=== PATIENT | female | born 1965 | race Caucasian/White ===

== ENCOUNTER 2018-01-19 11:33 | Inpatient (IN) | payer OTHER ==
--- NOTE | 2018-01-19 11:36 | PDOC ---
History of Present Illness <Candie Albert - Last Filed: 01/19/18 15:14> - General History Source: Patient Exam Limitations: No Limitations - History of Present Illness Initial Comments: 01/19/18 11:37 Ms Ferguson is a 52 yo F who returns to the ER for evaluation of left flank pain Pt HPI began 1 week ago when she developed dysuria and frequency. She was seen at the [facility] urgent care where she was diagnosed with a UTI and started on Macrobid. Her symptoms resolved however, [facility] her culture grew Proteus and she needed another antibiotic. Pt decided to come in to the ER for a second opinion despite being asymptomatic Pt UA sent and was nonspecific particularly in light of her symptom resolution She went home and felt well Yesterday she noted mild suprapubic pressure/discomfort This morning when she wiped after urinating, she noted that it looked pink Approximately 30 minutes prior to arrival in the ER, she developed severe left flank pain, described as achy, rated 7/10 with radiation to the suprapubic area. She also noted sensitivity/irritation of the clitoral area, as though something is trying to come out. No fever or chills No diarrhea (+) nausea, no vomiting No vaginal discharge. PMH: fibroid uterus PSH: C section Meds: denies ALL: ibuprofen --> lip swelling, Morphine --> feeling like she was going to pass out Social: Denies IVDU, tobacco FH: non contributory GENERAL/CONSTITUTIONAL: No: fever, chills, weakness, loss of appetite. HEAD, EYES, EARS, NOSE AND THROAT: No: change in vision, ear pain, discharge, sore throat, throat swelling. CARDIOVASCULAR: No: chest pain, lightheadedness, palpitations, syncope RESPIRATORY: No: cough, shortness of breath, wheezing, hemoptysis, stridor. GASTROINTESTINAL: No: nausea, vomiting, diarrhea, abdominal cramping, rectal bleeding, constipation. GENITOURINARY: Yes: ?hematuria, dysuria, left flank pain No: frequency, urgency MUSCULOSKELETAL: Yes: Left flank pain SKIN AND BREASTS: No: lesions, pallor, rash or easy bruising. NEUROLOGIC: No: headache, vertigo, paresthesias, weakness ENDOCRINE: No: unexplained weight gain or loss HEMATOLOGIC/LYMPHATIC: No: anemia, easy bleeding, swelling nodes. PHYSICAL EXAM: GENERAL: The patient is in no acute distress, appears uncomfortable. HEAD: Normal with no signs of trauma. EYES: PERRLA, EOMI, sclera anicteric, conjunctiva clear. ENT: Ears normal, nares patent, oropharynx clear without exudates. Moist mucous membranes. NECK: Normal range of motion, supple LUNGS: Breath sounds equal, clear to auscultation bilaterally. No wheezes, and no crackles. HEART:Regular rate and rhythm, normal S1 and S2 without murmur, rub or gallop. ABDOMEN: Soft, nontender, normoactive bowel sounds. EXTREMITIES: Normal range of motion, no edema. NEUROLOGICAL: Cranial nerves II through XII grossly intact. Normal speech. No focal neurological deficits. MUSCULOSKELETAL: Mild left CVA tenderness SKIN: Warm, Dry, normal turgor, no rashes or lesions noted. 01/19/18 11:50 01/19/18 11:51 <Marline Ramesh - Last Filed: 01/22/18 11:26> - General Chief Complaint: Hematuria Stated Complaint: LEFT LOWER BACK PAIN, HEMATURIA Time Seen by Provider: 01/19/18 11:36 Past History <Candie Albert - Last Filed: 01/19/18 15:14> - Past Medical History COPD: No Disorders: Yes (FIBROID) - Suicide/Smoking/Psychosocial Hx Smoking Status: No Smoking History: Never smoked Number of Cigarettes Smoked Daily: 0 Hx Alcohol Use: Yes (SOCIAL) Drug/Substance Use Hx: No Substance Use Type: None <Marline Ramesh - Last Filed: 01/22/18 11:26> - Past Medical History Allergies/Adverse Reactions: Allergies Allergy/AdvReac Type Severity Reaction Status Date / Time ibuprofen Allergy Severe Swelling Verified 01/19/18 17:09 Home Medications: Ambulatory Orders No Home Medications 0 dose .ROUTE UTDICT 04/01/13 *Physical Exam - Vital Signs Last Vital Signs Temp Pulse Resp BP Pulse Ox 99.0 F 72 16 122/60 100 01/19/18 14:52 01/19/18 14:52 01/19/18 14:52 01/19/18 14:52 01/19/18 14:52 <Candie Albert - Last Filed: 01/19/18 15:14> ED Treatment Course - LABORATORY CBC & Chemistry Diagram: 01/19/18 12:00 01/19/18 12:00 - ADDITIONAL ORDERS Additional order review: Laboratory Results 01/19/18 01/19/18 01/19/18 13:40 12:00 11:45 Sodium 134 L Potassium 3.9 Chloride 98 Carbon Dioxide 27 Anion Gap 9 BUN 16 Creatinine 0.7 Creat Clearance w eGFR > 60 Random Glucose 116 H Calcium 9.4 Total Bilirubin 0.5 AST 20 ALT 14 Alkaline Phosphatase 58 Total Protein 7.7 Albumin 4.3 Urine Color Yellow Urine Appearance Clear Urine pH 5.5 Ur Specific [place] 1.020 Urine Protein Negative Urine Glucose (UA) Negative Urine Ketones Negative Urine Blood 3+ H Urine Nitrite Negative Urine Bilirubin Negative Urine Urobilinogen 0.2 Ur Leukocyte Esterase 1+ H Urine RBC 3-5 Urine WBC 15-20 Ur Epithelial Cells 0-3 Urine HCG, Qual Negative 01/19/18 12:00 RBC 4.96 MCV 86.2 MCHC 32.1 RDW 14.6 MPV 9.4 Neutrophils % 74.0 Lymphocytes % 16.0 Monocytes % 9.1 Eosinophils % 0.4 Basophils % 0.5 - Medications Given in the ED: ED Medications Discontinued Medications Generic Name Dose Route Start Last Admin Trade Name Freq PRN Reason Stop Dose Admin Acetaminophen 1,000 mg 01/19/18 11:43 01/19/18 12:05 Ofirmev Injection - IVPB 01/19/18 11:44 1,000 mg ONCE ONE Administration Sodium Chloride 1,000 mls @ 1,000 mls/hr 01/19/18 11:43 01/19/18 12:00 Normal Saline - IV 01/19/18 12:42 1,000 mls/hr ASDIR STA Administration Sodium Chloride 1,000 mls @ 1,000 mls/hr 01/19/18 14:13 01/19/18 14:30 Normal Saline - IV 01/19/18 15:12 1,000 mls/hr ASDIR STA Administration Ceftriaxone Sodium 1 gm/ 100 mls @ 200 mls/hr 01/19/18 14:20 01/19/18 14:50 Dextrose IVPB 01/19/18 14:49 200 mls/hr ONCE ONE Administration Protocol Metoclopramide HCl 10 mg 01/19/18 14:13 01/19/18 14:40 Reglan Injection - IVPUSH 01/19/18 14:14 10 mg ONCE ONE Administration Morphine Sulfate 2 mg 01/19/18 14:20 01/19/18 14:45 Morphine Injection - IVPUSH 01/19/18 14:21 2 mg ONCE ONE Administration Ondansetron HCl 4 mg 01/19/18 11:43 01/19/18 12:00 Zofran Injection IVPUSH 01/19/18 11:44 4 mg ONCE ONE Administration Oxycodone/Acetaminophen 2 combo 01/19/18 13:43 01/19/18 14:02 Percocet 5/325 - PO 01/19/18 13:44 Not Given ONCE ONE <Candie Albert - Last Filed: 01/19/18 15:14> - LABORATORY CBC & Chemistry Diagram: 01/22/18 05:30 01/22/18 05:30 <Marline Ramesh - Last Filed: 01/22/18 11:26> Medical Decision Making - Medical Decision Making 01/19/18 15:15 Case d/w Dr. Starkey. <Candie Albert - Last Filed: 01/19/18 15:14> - Medical Decision Making 01/19/18 11:58 Urine cultures from 2 days ago are negative. Patient presents with acute left flank pain. Will do: Basic labs IV hydration Tylenol for pain Zofran for nausea CT without contrast to evaluate for kidney stone vs pyelonephritis Urinalysis 01/19/18 13:39 Laboratory Tests 01/19/18 01/19/18 01/19/18 11:45 12:00 12:00 WBC 9.1 Hgb 13.7 Hct 42.8 Plt Count 260 Sodium 134 L Potassium 3.9 Chloride 98 Carbon Dioxide 27 Anion Gap 9 BUN 16 Creatinine 0.7 Random Glucose 116 H Urine Blood 3+ H Urine Nitrite Negative Ur Leukocyte Esterase 1+ H Urine RBC 3-5 Urine WBC 15-20 Ur Epithelial Cells 0-3 CT performed prior to urine hcg CT demonstrated 3mm stone just proximal to Left UVJ, mild hydro, No perinephric stranding Ceftriaxone ordered given finding of UTI on UA Continue IV hydration Pain has not been controlled with Tylenol IV Pt given Reglan for vomiting Continue IV hydration Will try given narcotic medications for pain, pt states her reaction was that she passed out Pt given Morphine 4 with minimal effect Pt then given Dilaudid for pain with pain relief Urology contacted for consult Clinical impression: UTI, repeat presentation Infected kidney stone, initial presentation <Marline Ramesh - Last Filed: 01/22/18 11:26> *DC/Admit/Observation/Transfer <Candie Albert - Last Filed: 01/19/18 15:14> - Discharge Dispostion Decision to Admit order: Yes <Marline Ramesh - Last Filed: 01/22/18 11:26> Diagnosis at time of Disposition: Kidney stone on left side - Discharge Dispostion Condition at time of disposition: Stable
[2018-01-19] MEDS ORDERED: ONDANSETRON 4 MG/2 ML VIAL IVPUSH ONE (11:43)
[2018-01-19] MEDS ORDERED: ACETAMINOPHEN 1000 MG/100 ML VIAL (NON FORMULARY) IVPB ONE (11:43)
[2018-01-19] MEDS ORDERED: SODIUM CHLORIDE 1,000 ML IV STA ×2 (11:43→14:13)
[2018-01-19] MEDS ORDERED: ACETAMINOPHEN INJECTION 100 ML IVPB ONE (11:49)
[2018-01-19] MEDS ORDERED: ONDANSETRON 4 MG/2 ML VIAL ONE (11:49)
[2018-01-19 11:50] LABS: PH,URINE 5.5 (4.5-8); URINE APPEARANCE Clear; URINE BILIRUBIN Negative (NEGATIVE); URINE GLUCOSE (UA) Negative (NEGATIVE); URINE KETONE Negative (NEGATIVE); URINE NITRITE Negative (NEGATIVE); URINE PROTEIN Negative (NEGATIVE); URINE UROBILINOGEN 0.2 (0.2-1.0)
[2018-01-19 11:52] LABS: URINE COLOR YELLOW; URINE LEUK ESTERASE 1+ (NEGATIVE)
[2018-01-19 11:53] VITALS: BMI 21.1
[2018-01-19 12:26] LABS: BASO % 0.5 % (0-2.0); EOS % 0.4 % (0-4.5); HEMATOCRIT 42.8 % (32.4-45.2); HEMOGLOBIN 13.7 GM/dl (10.7-15.3); MCH 27.7 pg (25.7-33.7); MCHC 32.1 g/dl (32.0-36.0); MEAN CELL VOLUME 86.2 fl (80-96); MEAN PLT VOLUME 9.4 fl (7.5-11.1); MONO % 9.1 % (3.8-10.2); PLATELET COUNT 260 K/MM3 (134-434); RBC 4.96 M/mm3 (3.60-5.2); RDW 14.6 % (11.6-15.6); WHITE BLOOD COUNT 9.1 K/mm3 (4.0-10.8)
[2018-01-19 12:48] LABS: ALBUMIN 4.3 g/dl (3.5-5.0); ALK PHOS 58 U/L (32-92); ANION GAP 9 (8-16); BILIRUBIN,TOTAL 0.5 mg/dl (0.2-1.0); BLOOD UREA NITROGEN 16 mg/dl (7-18); CALCIUM 9.4 mg/dl (8.4-10.2); CHLORIDE 98 mmol/L (98-107); CO2 27 mmol/L (22-28); CREATININE 0.7 mg/dl (0.6-1.3); GLUCOSE,RANDOM 116 mg/dl (74-106); POTASSIUM 3.9 mmol/L (3.5-5.1); SGOT/AST 20 U/L (10-42); SGPT/ALT 14 U/L (10-40); SODIUM 134 mmol/L (136-145); TOT PROT 7.7 g/dl (6.4-8.3)
[2018-01-19 12:50] LABS: EPI CELLS 0-3 /HPF; URINE WBC 15-20 (0-5)
[2018-01-19] MEDS ORDERED: METOCLOPRAMIDE HCL INJECTION 10 MG/2 ML VIAL IVPUSH ONE (14:13)
[2018-01-19] MEDS ORDERED: morphine CARPU-JECT 2 MG/1 ML DISP.SYRIN IVPUSH ONE (14:20)
[2018-01-19] MEDS ORDERED: CEFTRIAXONE 1 GM in DEXTROSE 5%-WATER - 100 ML IVPB ONE (14:20)
[2018-01-19] MEDS ORDERED: morphine SULFATE 4 MG/ML VIAL ONE ×2 (14:22→15:11)
[2018-01-19] MEDS ORDERED: cefTRIAXone SODIUM 1 GM VIAL ONE (14:23)
[2018-01-19] MEDS ORDERED: morphine CARPU-JECT 4 MG/1 ML DISP.SYRIN IVPB ONE (15:08)
[2018-01-19] MEDS ORDERED: HYDROmorphone HCL CARPU-JECT 1 MG/1 ML DISP.SYRIN IVPB ONE (15:31)
[2018-01-19] MEDS ORDERED: HYDROmorphone HCL CARPU-JECT 2 MG/1 ML DISP.SYRIN ONE (15:31)
[2018-01-19] MEDS ORDERED: HYDROmorphone HCL CARPU-JECT 2 MG/1 ML DISP.SYRIN IVPUSH PRN (20:12)
[2018-01-19] MEDS ORDERED: ONDANSETRON 4 MG/2 ML VIAL IVPUSH PRN (20:12)
[2018-01-19] MEDS ORDERED: TAMSULOSIN HCL 0.4 MG CAP.ER.24H (FP) PO ONE (20:15)
[2018-01-19] MEDS ORDERED: PHENAZOPYRIDINE HCL 100 MG TABLET (FP) PO ONE (23:43)
--- NOTE | 2018-01-19 23:43 | HP ---
CHIEF COMPLAINT: Left flank pain PCP: Reta HISTORY OF PRESENT ILLNESS: This is a 52 year old female with a past medical history of fibroid uterus who presented to the ED with c/o severe left flank pain today. Pt presented to urgent care a week ago with dysuria and frequency. She was treated with macrobid. She then later received a call stating that she needed another antibiotic so she presented here to the ED for a second opinion 2 days ago. At that time her u/a was no longer consistent with UTI and culture revealed less than 10,000 CFU. Yesterday she had some suprapubic pressure. Today the pressure was improved when she woke up but then developed severe left flank pain around 11am prompting her to come to the ED. Upon exam, pt reports the severe pain has resolved, still with some mild pain to left flank and + SP pressure has returned. She also reports dysuria. Pt also reports pink tinged urine this am just prior to onset of flank pain. ER course was notable for: (1) u/a c/w UTI (2) CT revealed 3mm distal ureteral stone Recent Travel: pt denies PAST MEDICAL HISTORY: fibroid uterus PAST SURGICAL HISTORY: c- section x 2 Social History: Smoking: pt denies Alcohol: pt denies Drugs: pt denies Family History: mother alive, h/o HTN, preDM, kidney stone father alive, h/o HTN, CKD sister alive, h/o kidney stone, BrCA Allergies ibuprofen Allergy (Severe, Verified 01/19/18 17:09) Swelling HOME MEDICATIONS: 3 Medication Instructions Recorded No Home Medications 0 dose .ROUTE UTDICT 04/01/13 REVIEW OF SYSTEMS CONSTITUTIONAL: Absent: fever, chills, diaphoresis, generalized weakness, malaise, loss of appetite, weight change HEENT: Absent: rhinorrhea, nasal congestion, throat pain, throat swelling, difficulty swallowing, mouth swelling, ear pain, eye pain, visual changes CARDIOVASCULAR: Absent: chest pain, syncope, palpitations, irregular heart rate, lightheadedness , peripheral edema RESPIRATORY: Absent: cough, shortness of breath, dyspnea with exertion, orthopnea, wheezing, stridor, hemoptysis GASTROINTESTINAL: Absent: abdominal pain, abdominal distension, nausea, vomiting, diarrhea, constipation, melena, hematochezia GENITOURINARY: Present: dysuria, frequency, hematuria, flank pain Absent: urgency, hesitancy, genital pain MUSCULOSKELETAL: Absent: myalgia, arthralgia, joint swelling, back pain, neck pain SKIN: Absent: rash, itching, pallor HEMATOLOGIC/IMMUNOLOGIC: Absent: easy bleeding, easy bruising, lymphadenopathy, frequent infections ENDOCRINE: Absent: unexplained weight gain, unexplained weight loss, heat intolerance, cold intolerance NEUROLOGIC: Absent: headache, focal weakness or paresthesias, dizziness, unsteady gait, seizure, mental status changes, bladder or bowel incontinence PSYCHIATRIC: Absent: anxiety, depression, suicidal or homicidal ideation, hallucinations. PHYSICAL EXAMINATION Vital Signs - 24 hr 3 01/19/18 01/19/18 01/19/18 11:34 14:52 17:17 Temperature 97.9 F 99.0 F 98.1 F Pulse Rate 95 H 66 Pulse Rate [ 72 Right Radial] Respiratory 16 16 17 Rate Blood Pressure 173/98 120/62 Blood Pressure 122/60 [Left Arm] O2 Sat by Pulse 100 100 Oximetry (%) 3 01/19/18 01/19/18 17:23 20:13 Temperature 98.1 F 99.2 F Pulse Rate 67 72 Pulse Rate [ Right Radial] Respiratory 17 20 Rate Blood Pressure 122/62 107/54 Blood Pressure [Left Arm] O2 Sat by Pulse Oximetry (%) GENERAL: Awake, alert, and fully oriented, in no acute distress. HEAD: Normal with no signs of trauma. EYES: Pupils equal, round and reactive to light, extraocular movements intact, sclera anicteric, conjunctiva clear. No lid lag. EARS, NOSE, THROAT: Ears normal, nares patent, oropharynx clear without exudates. Moist mucous membranes. NECK: Normal range of motion, supple without lymphadenopathy, JVD, or masses. LUNGS: Breath sounds equal, clear to auscultation bilaterally. No wheezes, and no crackles. No accessory muscle use. HEART: Regular rate and rhythm, normal S1 and S2 without murmur, rub or gallop. ABDOMEN: Soft, nontender, not distended, normoactive bowel sounds, no guarding, no rebound, no masses. No hepatomegaly or splenomegaly. MUSCULOSKELETAL: Normal range of motion at all joints. No bony deformities or tenderness. No CVA tenderness. UPPER EXTREMITIES: 2+ pulses, warm, well-perfused. No cyanosis. No clubbing. No peripheral edema. LOWER EXTREMITIES: 2+ pulses, warm, well-perfused. No calf tenderness. No peripheral edema. NEUROLOGICAL: Cranial nerves II-XII intact. Normal speech. Normal gait. PSYCHIATRIC: Cooperative. Good eye contact. Appropriate mood and affect. SKIN: Warm, dry, normal turgor, no rashes or lesions noted, normal capillary refill. Laboratory Results - last 24 hr 3 01/19/18 01/19/18 01/19/18 11:45 12:00 12:00 13:40 WBC 9.1 RBC 4.96 Hgb 13.7 Hct 42.8 MCV 86.2 MCH 27.7 MCHC 32.1 RDW 14.6 Plt Count 260 MPV 9.4 Absolute Neuts (auto) 6.8 Neutrophils % 74.0 Lymphocytes % 16.0 Monocytes % 9.1 Eosinophils % 0.4 Basophils % 0.5 Sodium 134 L Potassium 3.9 Chloride 98 Carbon Dioxide 27 Anion Gap 9 BUN 16 Creatinine 0.7 Creat Clearance w eGFR > 60 Random Glucose 116 H Calcium 9.4 Total Bilirubin 0.5 AST 20 ALT 14 Alkaline Phosphatase 58 Total Protein 7.7 Albumin 4.3 Urine Color Yellow Urine Appearance Clear Urine pH 5.5 Ur Specific [place] 1.020 Urine Protein Negative Urine Glucose (UA) Negative Urine Ketones Negative Urine Blood 3+ H Urine Nitrite Negative Urine Bilirubin Negative Urine Urobilinogen 0.2 Ur Leukocyte Esterase 1+ H Urine RBC 3-5 Urine WBC 15-20 Ur Epithelial Cells 0-3 Urine HCG, Qual Negative Radiology Reports CT renal stone IMPRESSION: A 3 mm distal left ureteral calculus is noted adjacent to the ureterovesical junction with resultant mild hydronephrosis. Multiple small bilateral nonobstructing renal calculi are seen. 7 cm partially calcified uterine leiomyoma. Reported By: Daniel Her MD 01/19/18 9699 ASSESSMENT/PLAN: 52yF with PMH fibroid uterus presented to the ED with severe left flank pain, hematuria, dysuria, frequency. nephrolithiasis - 3mm stone distal ureter, likely will pass on its own - manage pain, hydromorphone 0.5mg IVP ordered PRN - urology consult, november f/u as outpatient UTI - cont ceftriaxone - follow urine culture DVT PPX - low risk, heparin deferred as anticipated LOS less than 48h FEN - tolerating po fluids - BMP in am - regular diet as tolerated Dispo: pt admitted for further observation. Visit type - Emergency Visit Emergency Visit: Yes ED Registration Date: 01/19/18 Care time: The patient presented to the Emergency Department on the above date and was hospitalized for further evaluation of their emergent condition. - New Patient This patient is new to me today: Yes Date on this admission: 01/19/18 - Critical Care Critical Care patient: No Hospitalist Screening - Colonoscopy Questionnaire Colonoscopy Questionnaire: Colonoscopy Questionnaire - Patient: 50 - 75 years old and never had a screening colonoscopy: Yes History of colon or rectal polyps, or CA: No History of IBD, Crohn's disease or UC: No History of abdominal radiation therapy as a child: No - Relative: 1 with colon or rectal CA, or polyps at age 60 or younger: No Colon or rectal CA diagnosed at age 45 or younger: No Multiple relatives with colon or rectal CA: No - Outcome: Screening Result: Positive Screen
[2018-01-20] MEDS: ACETAMINOPHEN 325 MG TABLET (FP) PO PRN (01:51)
[2018-01-20 08:21] LABS: HEMATOCRIT 34.2 % (32.4-45.2); HEMOGLOBIN 10.9 GM/dl (10.7-15.3); MCH 27.4 pg (25.7-33.7); MEAN CELL VOLUME 85.6 fl (80-96); MEAN PLT VOLUME 9.4 fl (7.5-11.1); PLATELET COUNT 142 K/MM3 (134-434); RBC 3.99 M/mm3 (3.60-5.2); RDW 15.1 % (11.6-15.6); WHITE BLOOD COUNT 23.6 K/mm3 (4.0-10.8)
[2018-01-20 08:33] LABS: ADD RBC MORPHOLOGY YES
--- NOTE | 2018-01-20 08:46 | PN ---
Physical Exam: SUBJECTIVE: Patient seen and examined, reports left lower quadrant pressure and nausea. OBJECTIVE: patient is a 52 y/o female with a past medical history of uterine fibroids, patient was admitted form the emergency department for sepsis secondary to UTI and urethral calcul Vital Signs Period Temp Pulse Resp BP Sys/Brooks Pulse Ox Last 24 Hr 97.9 F-99.4 F 66-95 16-20 101-173/54-98 97-100 GENERAL: The patient is awake, alert, and fully oriented, in no acute distress. HEAD: Normal with no signs of trauma. EYES: PERRL, extraocular movements intact, sclera anicteric, conjunctiva clear. No ptosis. ENT: Ears normal, nares patent, oropharynx clear without exudates, moist mucous membranes. NECK: Trachea midline, full range of motion, supple. LUNGS: Breath sounds equal, clear to auscultation bilaterally, no wheezes, no crackles, no accessory muscle use. HEART: Regular rate and rhythm, S1, S2 without murmur, rub or gallop. ABDOMEN: Soft, nontender, nondistended, normoactive bowel sounds, no guarding, no rebound, no hepatosplenomegaly, no masses. EXTREMITIES: 2+ pulses, warm, well-perfused, no edema. NEUROLOGICAL: Cranial nerves II through XII grossly intact. Normal speech, gait not observed. PSYCH: Normal mood, normal affect. SKIN: Warm, dry, normal turgor, no rashes or lesions noted Laboratory Results - last 24 hr 01/19/18 01/19/18 01/19/18 11:45 12:00 12:00 WBC 9.1 RBC 4.96 Hgb 13.7 Hct 42.8 MCV 86.2 MCH 27.7 MCHC 32.1 RDW 14.6 Plt Count 260 MPV 9.4 Absolute Neuts (auto) 6.8 Neutrophils % 74.0 Lymphocytes % 16.0 Monocytes % 9.1 Eosinophils % 0.4 Basophils % 0.5 Sodium 134 L Potassium 3.9 Chloride 98 Carbon Dioxide 27 Anion Gap 9 BUN 16 Creatinine 0.7 Creat Clearance w eGFR > 60 Random Glucose 116 H Calcium 9.4 Total Bilirubin 0.5 AST 20 ALT 14 Alkaline Phosphatase 58 Total Protein 7.7 Albumin 4.3 Urine Color Yellow Urine Appearance Clear Urine pH 5.5 Ur Specific [place] 1.020 Urine Protein Negative Urine Glucose (UA) Negative Urine Ketones Negative Urine Blood 3+ H Urine Nitrite Negative Urine Bilirubin Negative Urine Urobilinogen 0.2 Ur Leukocyte Esterase 1+ H Urine RBC 3-5 Urine WBC 15-20 Ur Epithelial Cells 0-3 Urine HCG, Qual 01/19/18 01/20/18 13:40 08:00 WBC 23.6 H RBC 3.99 Hgb 10.9 Hct 34.2 D MCV 85.6 MCH 27.4 MCHC 32.0 RDW 15.1 Plt Count 142 MPV 9.4 Absolute Neuts (auto) 21.5 Neutrophils % No Result Required. Lymphocytes % No Result Required. Monocytes % Eosinophils % Basophils % Sodium Potassium Chloride Carbon Dioxide Anion Gap BUN Creatinine Creat Clearance w eGFR Random Glucose Calcium Total Bilirubin AST ALT Alkaline Phosphatase Total Protein Albumin Urine Color Urine Appearance Urine pH Ur Specific [place] Urine Protein Urine Glucose (UA) Urine Ketones Urine Blood Urine Nitrite Urine Bilirubin Urine Urobilinogen Ur Leukocyte Esterase Urine RBC Urine WBC Ur Epithelial Cells Urine HCG, Qual Negative Active Medications Generic Name Dose Route Start Last Admin Trade Name Freq PRN Reason Stop Dose Admin Acetaminophen 650 mg 01/20/18 01:44 01/20/18 01:51 Tylenol - PO 650 mg Q6H PRN Administration HEADACHE Hydromorphone HCl 0.5 mg 01/19/18 20:12 Dilaudid Injection - IVPUSH Q4H PRN PAIN LEVEL 6-10 Ceftriaxone Sodium 1 gm/ 50 mls @ 100 mls/hr 01/20/18 10:00 Dextrose IVPB DAILY [facility] Ondansetron HCl 4 mg 01/19/18 20:12 Zofran Injection IVPUSH Q6H PRN NAUSEA Tamsulosin HCl 0.4 mg 01/20/18 08:30 Flomax - PO DAILY@0830 [facility] Microbiology 01/19/18 11:45 Urine - Urine Clean Catch Urine Culture - Preliminary Proteus Species Radiology Reports CT renal stone IMPRESSION: A 3 mm distal left ureteral calculus is noted adjacent to the ureterovesical junction with resultant mild hydronephrosis. Multiple small bilateral nonobstructing renal calculi are seen. 7 cm partially calcified uterine leiomyoma. Reported By: Daniel Her MD 01/19/18 1404 ekg: nsr normal axis ASSESSMENT/PLAN: 1) ureteral calculus - ct scan of abd/pelvis reviewed mild hydronephrosis noted, start flomax, increase ivf to 100ml/hr, strain all urine - discussed with patient and the importance of nephrostomy tube placement, patient and decline transfer to [facility] for emergent surgical intervention, rather wait for the stone to pass without any intervention, patient and made aware of the risk of worsening of sepsis and renal failure, both and patient verbalize understanding - repeat creatine at 1400, close monitoring - discussed with urology, Dr Sal will evaluate patient today 2) ID sepsis - secondary to UTI, blood cultures ordered - rocephin 2gm iv daily - trend wbc and fever curve f/e/n - npo-->ivf - replete magnesium ppx - hold ac pt may require surgical intervention - pepcid - scd - oob dispo: pt requires inpatient admission Visit type - Emergency Visit Emergency Visit: Yes ED Registration Date: 01/20/18 Care time: The patient presented to the Emergency Department on the above date and was hospitalized for further evaluation of their emergent condition. - New Patient This patient is new to me today: Yes Date on this admission: 01/20/18 - Critical Care Critical Care patient: No - Discharge Referral Referred to [facility] No
[2018-01-20 08:55] LABS: ANION GAP 10 (8-16); BLOOD UREA NITROGEN 16 mg/dl (7-18); CALCIUM 8.1 mg/dl (8.4-10.2); CHLORIDE 100 mmol/L (98-107); CO2 22 mmol/L (22-28); CREATININE 1.2 mg/dl (0.6-1.3); GLUCOSE,RANDOM 102 mg/dl (74-106); MAGNESIUM 1.1 mg/dL (1.8-2.4); PHOSPHOROUS 3.4 mg/dl (2.5-4.6); POTASSIUM 3.6 mmol/L (3.5-5.1); SODIUM 132 mmol/L (136-145)
[2018-01-20] MEDS ORDERED: MAGNESIUM SULFATE 2 GM in SODIUM CHLORIDE 100 ML IVPB ONE (09:26)
[2018-01-20] MEDS: TAMSULOSIN HCL 0.4 MG CAP.ER.24H (FP) PO SCH (09:30)
[2018-01-20 09:42] LABS: PLATELET ESTIMATE ADEQUATE
[2018-01-20] MEDS ORDERED: SODIUM CHLORIDE 0.9%/KCL 20 MEQ/1,000 ML INFUS.BAG IV SCH (10:00)
[2018-01-20] MEDS ORDERED: cefTRIAXone 2 GM/100 ML BAG (PRE-DOCKED) IVPB SCH (10:00)
[2018-01-20] MEDS ORDERED: CEFTRIAXONE 1 GM in DEXTROSE 5%-WATER - 50 ML IVPB SCH (10:00)
[2018-01-20] MEDS ORDERED: CEFTRIAXONE 2 GM-D5W BAG 2 GM/50 ML BAG IVPB SCH (10:00)
[2018-01-20] MEDS ORDERED: MAGNESIUM SULFATE IN WATER 2 GM/50 ML IVPB IVPB ONE (10:00)
[2018-01-20] MEDS: SODIUM CHLORIDE 0.9%/KCL 20 MEQ/1,000 ML INFUS.BAG IV SCH (12:30)
--- NOTE | 2018-01-20 13:08 | EKG ---
Test Reason : Blood Pressure : / mmHG Vent. Rate : 096 BPM Atrial Rate : 096 BPM P-R Int : 138 ms QRS Dur : 080 ms QT Int : 362 ms P-R-T Axes : 070 056 036 degrees QTc Int : 457 ms NORMAL SINUS RHYTHM NORMAL ECG WHEN COMPARED WITH ECG OF 07-SEP-2005 12:50, NO SIGNIFICANT CHANGE WAS FOUND Confirmed by MD SHEA, LORENA ([id number]) on 01/20/2018 1:07:44 PM Referred By: GILBERTO Confirmed By:LORENA VALDIVIA MD
[2018-01-20] MEDS ORDERED: ACETAMINOPHEN 1000 MG/100 ML VIAL (NON FORMULARY) IVPB ONE (13:15)
--- NOTE | 2018-01-20 13:57 | PN ---
Progress Note (short form) - Note Progress Note: called about this patient who appears to have a septic stone. She has fever, elevated WBC with bandemia and a 3mm UVJ stone with hydronephrosis. I advised the BRAIDER TENDER that the patient needs urgent decompression with a nephrostomy tube (she is not NPO) and needs to be transferred to [facility]. Patient is refusing intervention and would rather "wait it out." I emphasized to the BRAIDER TENDER that the patient risks sepsis and if she does not allow intervention. The BRAIDER TENDER related to me that she told the patient and her the same thing and they still refuse.
[2018-01-20] MEDS: LACTOBACILLUS ACIDOPHILUS 1 TABLET PO SCH (14:40)
[2018-01-20 15:48] LABS: ANION GAP 8 (8-16); BLOOD UREA NITROGEN 16 mg/dl (7-18); CALCIUM 7.9 mg/dl (8.4-10.2); CHLORIDE 99 mmol/L (98-107); CO2 24 mmol/L (22-28); CREATININE 1.1 mg/dl (0.6-1.3); GLUCOSE,RANDOM 114 mg/dl (74-106); MAGNESIUM 2.1 mg/dL (1.8-2.4); POTASSIUM 3.8 mmol/L (3.5-5.1); SODIUM 131 mmol/L (136-145)
[2018-01-20 15:52] LABS: INR 1.55 (0.82-1.09); PROTHROMBIN TIME (PATIENT) 17.2 SEC (10.2-13.0)
[2018-01-20 17:07] LABS: HEMATOCRIT 33.8 % (32.4-45.2); HEMOGLOBIN 11.4 GM/dl (10.7-15.3); MCH 28.6 pg (25.7-33.7); MCHC 33.7 g/dl (32.0-36.0); MEAN PLT VOLUME 9.7 fl (7.5-11.1); PLATELET COUNT 141 K/MM3 (134-434); RBC 3.98 M/mm3 (3.60-5.2); RDW 15.1 % (11.6-15.6); WHITE BLOOD COUNT 25.9 K/mm3 (4.0-10.8)
--- NOTE | 2018-01-20 18:30 | CON.GU ---
Consult Consult Specialty:: Referred by:: Medicine Reason for Consultation:: 52 year old female with 3mm L UVJ stone, hydronephrosis - History of Present Illness Chief Complaint: 52 year old female with 3mm L UVJ stone, hydronephrosis History of Present Illness: 52 year old woman with left sided flank pain. No previous stones seen. She was seen earlier today and I was called about this patient with infected stone and hydronephrosis and bandemia. I recommended immediate nephrostomy tube placement. The patient refused at the time. It was explained that she could become septic, hypotensive and it could be fatal. At the time she elected to "wait it out." I had another conversation with her just now and she is willing to go forward with a nephrostomy tube. She does not want a retrograde stent. WBC has increased from 23 too 25.9 and her repeat US still shows moderate left sided hydronephrosis. - History Source History Provided By: Patient Limitations to Obtaining History: No Limitations - Past Medical History Renal/: No: Renal Calculi, UTI ...: No - Alcohol/Substance Use Hx Alcohol Use: Yes (SOCIAL) - Smoking History Smoking history: Never smoked Aproximately how many cigarettes per day: 0 Home Medications - Allergies Allergies/Adverse Reactions: Allergies Allergy/AdvReac Type Severity Reaction Status Date / Time ibuprofen Allergy Severe Swelling Verified 01/19/18 17:09 - Home Medications Home Medications: Ambulatory Orders No Home Medications 0 dose .ROUTE UTDICT 04/01/13 Review of Systems - Review of Systems Constitutional: reports: Fever Genitourinary: reports: Flank Pain Physical Exam- Vital Signs: Vital Signs Temperature 98.6 F 01/20/18 14:04 Pulse Rate 83 01/20/18 14:04 Respiratory Rate 16 01/20/18 14:04 Blood Pressure 123/61 01/20/18 14:04 O2 Sat by Pulse Oximetry (%) 97 01/20/18 14:04 Constitutional: Yes: Well Nourished, No Distress, Calm Respiratory: Yes: WNL, Regular, CTA Bilaterally Gastrointestinal: Yes: WNL, Normal Bowel Sounds Renal/: Yes: CVA Tenderness - Left. No: CVA Tenderness - Right, Espinoza Present , Hematuria, Incontinence Labs: CBC, BMP 01/20/18 16:00 01/20/18 15:40 Imaging - Results Cat Scan: Report Reviewed Ultrasound: Report Reviewed Problem List - Problems (1) Sepsis due to urinary tract infection Assessment/Plan: I am recommending urgent nephrostomy tube placement. She refuses retrograde stent placement and she has not been NPO. STAT order for PCN placed. Will need to transfer to [facility] for procedure to be done. Code(s): A41.9 - SEPSIS, UNSPECIFIED ORGANISM; N39.0 - URINARY TRACT INFECTION, SITE NOT SPECIFIED (2) Hydronephrosis Code(s): N13.30 - UNSPECIFIED HYDRONEPHROSIS
[2018-01-20] MEDS ORDERED: FAMOTIDINE 20 MG TABLET PO SCH (22:00)
[2018-01-21] MEDS ORDERED: ONDANSETRON 4 MG/2 ML VIAL IVPUSH ONE (01:14)
[2018-01-21] MEDS: ACETAMINOPHEN 325 MG TABLET (FP) PO PRN ×2 (05:58→13:38)
--- NOTE | 2018-01-21 06:40 | HOSP ---
Subjective - Review of Symptoms Events since last encounter: Pt transferred to [facility] from [place] for percutaneous nephrostomy tube placement. Subjective: Pt with c/o minimal pain at nephrostomy tube site. States she can feel it and it is uncomfortable when she moves but pain is tolerable. Was nauseas when came back up to floor from IR. Given zofran with good effect. No further nausea at this time. Physical Examination Vital Signs: Vital Signs Temperature 98.7 F 01/21/18 06:00 Pulse Rate 87 01/21/18 06:00 Respiratory Rate 20 01/21/18 06:00 Blood Pressure 119/70 01/21/18 06:00 O2 Sat by Pulse Oximetry (%) 98 01/21/18 04:00 Constitutional: Yes: No Distress, Calm Cardiovascular: Yes: Regular Rate and Rhythm, S1, S2 Respiratory: Yes: CTA Bilaterally Gastrointestinal: Yes: Normal Bowel Sounds, Soft Renal/: Yes: Other (percutaneous nephrostomy tube site left flank with no erythema, bleeding or edema. draining clear yellow urine, old blood noted in tubing.) Musculoskeletal: Yes: WNL Extremities: Yes: WNL Edema: No Peripheral Pulses WNL: Yes Hospitalist Encounter Assessment: renal stone in left UVJ with evidence of UTI - s/p percutaneous nephrostomy tube placement - urology consult appreciated - cont ceftriaxone - follow urine culture
[2018-01-21 06:48] LABS: CHLORIDE 105 mmol/L (98-107); POTASSIUM 3.9 mmol/L (3.5-5.1); SODIUM 139 mmol/L (136-145)
[2018-01-21 06:54] LABS: ANION GAP 9 (8-16); BLOOD UREA NITROGEN 12 mg/dL (7-18); CALCIUM 7.9 mg/dL (8.5-10.1); CO2 25 mmol/L (21-32); CREATININE 0.7 mg/dL (0.55-1.02); GLUCOSE,RANDOM 91 mg/dL (74-106); PHOSPHOROUS 2.1 mg/dL (2.5-4.9)
[2018-01-21 07:14] LABS: BASO % 0.4 % (0-2.0); EOS % 0.2 % (0-4.5); HEMATOCRIT 31.6 % (32.4-45.2); HEMOGLOBIN 10.3 GM/dL (10.7-15.3); LYMPH % 6.2 % (8-40); MCHC 32.5 g/dl (32.0-36.0); MEAN CELL VOLUME 85.9 fl (80-96); MEAN PLT VOLUME 9.4 fl (7.5-11.1); MONO % 5.9 % (3.8-10.2); NEUT % 87.3 % (42.8-82.8); PLATELET COUNT 119 K/MM3 (134-434); RBC 3.68 M/mm3 (3.60-5.2); RDW 16.5 % (11.6-15.6); WHITE BLOOD COUNT 21.7 K/mm3 (4.0-10.0)
--- NOTE | 2018-01-21 08:23 | PN ---
Physical Exam: SUBJECTIVE: Patient seen and examined at the bedside. No longer nauseaous, feels better. No chest pain, not shortness of breath. OBJECTIVE: Vital Signs Period Temp Pulse Resp BP Sys/Brooks Pulse Ox Last 24 Hr 98.2 F-98.7 F 81-99 16-22 119-147/61-95 97-98 GENERAL: The patient is awake, alert, and fully oriented, in no acute distress. HEAD: Normal with no signs of trauma. EYES: PERRL, extraocular movements intact, sclera anicteric, conjunctiva clear. No ptosis. ENT: Ears normal, nares patent, oropharynx clear without exudates, moist mucous membranes. NECK: Trachea midline, full range of motion, supple. LUNGS: Breath sounds equal, clear to auscultation bilaterally, no wheezes, no crackles, no accessory muscle use. HEART: Regular rate and rhythm ABDOMEN: Soft, nontender, nondistended, normoactive bowel sounds, no guarding, no rebound, no hepatosplenomegaly, no masses. NEUROLOGICAL: Normal speech, gait not observed. PSYCH: Normal mood, normal affect. SKIN: left nephrostomy tube with sero sang drainage, total out put 450 Laboratory Results - last 24 hr 01/20/18 01/20/18 01/20/18 08:00 08:00 15:40 WBC 23.6 H RBC 3.99 Hgb 10.9 Hct 34.2 D MCV 85.6 MCH 27.4 MCHC 32.0 RDW 15.1 Plt Count 142 MPV 9.4 Absolute Neuts (auto) 21.5 Neutrophils % No Result Required. Neutrophils % (Manual) 74.0 Band Neutrophils % 18.0 H Lymphocytes % No Result Required. Lymphocytes % (Manual) 6.0 L Monocytes % Monocytes % (Manual) 2 L Eosinophils % Basophils % Nucleated RBC % Platelet Estimate Adequate PT with INR 17.2 H INR 1.55 H Sodium 132 L Potassium 3.6 Chloride 100 Carbon Dioxide 22 Anion Gap 10 BUN 16 Creatinine 1.2 Creat Clearance w eGFR 46.82 Random Glucose 102 Calcium 8.1 L Phosphorus 3.4 Magnesium 1.1 L 01/20/18 01/20/18 01/21/18 15:40 16:00 06:00 WBC 25.9 H 21.7 H RBC 3.98 3.68 Hgb 11.4 10.3 L Hct 33.8 31.6 L MCV 85.0 85.9 MCH 28.6 28.0 MCHC 33.7 32.5 RDW 15.1 16.5 H Plt Count 141 119 L MPV 9.7 9.4 Absolute Neuts (auto) 19.0 Neutrophils % No Result Required. 87.3 H Neutrophils % (Manual) Band Neutrophils % Lymphocytes % No Result Required. 6.2 L Lymphocytes % (Manual) Monocytes % 5.9 Monocytes % (Manual) Eosinophils % 0.2 Basophils % 0.4 Nucleated RBC % 0 Platelet Estimate PT with INR INR Sodium 131 L Potassium 3.8 Chloride 99 Carbon Dioxide 24 Anion Gap 8 BUN 16 Creatinine 1.1 Creat Clearance w eGFR 51.76 Random Glucose 114 H Calcium 7.9 L Phosphorus Magnesium 2.1 01/21/18 06:00 WBC RBC Hgb Hct MCV MCH MCHC RDW Plt Count MPV Absolute Neuts (auto) Neutrophils % Neutrophils % (Manual) Band Neutrophils % Lymphocytes % Lymphocytes % (Manual) Monocytes % Monocytes % (Manual) Eosinophils % Basophils % Nucleated RBC % Platelet Estimate PT with INR INR Sodium 139 Potassium 3.9 Chloride 105 Carbon Dioxide 25 Anion Gap 9 BUN 12 Creatinine 0.7 Creat Clearance w eGFR > 60 Random Glucose 91 Calcium 7.9 L Phosphorus 2.1 L Magnesium 2.0 Active Medications Generic Name Dose Route Start Last Admin Trade Name Freq PRN Reason Stop Dose Admin Acetaminophen 650 mg 01/20/18 01:44 01/21/18 05:58 Tylenol - PO 650 mg Q6H PRN Administration HEADACHE Potassium Chloride/Sodium Chloride 20 meq in 1,000 mls @ 100 mls/hr 01/20/18 13:11 01/20/18 12:30 Ns+20 Meq Kcl - IV 100 mls/hr ASDIR INDRA Administration Ceftriaxone Sodium 2 gm/ 100 mls @ 100 mls/hr 01/21/18 10:00 Dextrose IVPB DAILY INDRA Lactobacillus Acidophilus 1 tab 01/20/18 13:45 01/20/18 14:40 Bacid - PO 1 tab DAILY INDRA Administration Ondansetron HCl 4 mg 01/19/18 20:12 01/20/18 21:08 Zofran Injection IVPUSH 4 mg Q6H PRN Administration NAUSEA Ranitidine HCl 150 mg 01/21/18 10:00 Zantac - PO BID INDRA Tamsulosin HCl 0.4 mg 01/20/18 08:30 01/20/18 09:30 Flomax - PO 0.4 mg DAILY@0830 [facility] Administration ASSESSMENT/PLAN: Patient is a 52 year old female with a past medical history of uterine fibroids. Patient was admitted initially to [facility] [place] then transfered to [place] for sepsis secondary to UTI with left sided flank pain, possible infected stone, mild hydronephrosis and WBC 25.9. She is s/p left nephrostomy tube placement on 01/19/2018. Imaging CT renal stone IMPRESSION: A 3 mm distal left urethral calculus is noted adjacent to the ureterovesical junction with resultant mild hydronephrosis. Multiple small bilateral nonobstructing renal calculi are seen. 7 cm partially calcified uterine leiomyoma. : Left percutanous nephrostomy tube placed 01/20 Monitor output, vitals, fever curve. On ceftriaxone 2 grams. on Flomax daily. Followed by urology. Monitor Bun/Creat and nephrostomy output. ID Sepsis, secondary to UTI. UC pending, on Ceftriaxone 2g. Trend labs, vitals. FEN On IVF hydration NS with 20meq monitor electrolytes clear liquid diet in a.m, , now regular diet prophy SCDs, ambulation Scant amt of hematuria, hold of on anticoagulations. SCDs ordered Dispostion: full code Visit type - Emergency Visit Emergency Visit: Yes ED Registration Date: 01/20/18 Care time: The patient presented to the Emergency Department on the above date and was hospitalized for further evaluation of their emergent condition. - New Patient This patient is new to me today: Yes Date on this admission: 01/21/18 - Critical Care Critical Care patient: No - Discharge Referral Referred to [facility] Med P.C.: No
[2018-01-21] MEDS ORDERED: PT OWN MED DRAWER 7, Y5N ONE (09:07)
[2018-01-21] MEDS ORDERED: DEXTROSE 5%-WATER 100 ML IVPB ONE (09:07)
[2018-01-21] MEDS: TAMSULOSIN HCL 0.4 MG CAP.ER.24H (FP) PO SCH (09:10)
[2018-01-21] MEDS: RANITIDINE HCL 150 MG TABLET (FP) PO SCH ×2 (09:10→21:06)
[2018-01-21] MEDS: LACTOBACILLUS ACIDOPHILUS 1 TABLET PO SCH (09:10)
[2018-01-21] MEDS: CEFTRIAXONE 2 GM in DEXTROSE 5%-WATER 100 ML IVPB SCH (09:11)
[2018-01-21] MEDS: SODIUM CHLORIDE 0.9%/KCL 20 MEQ/1,000 ML INFUS.BAG IV SCH ×2 (13:30→20:55)
[2018-01-21] MEDS ORDERED: MAG HYDROX/AL HYDROX/SIMETH 30 ML UNIT-DOSE CUP PO ONE (21:50)
--- NOTE | 2018-01-21 23:08 | HOSP ---
Subjective - Review of Symptoms Subjective: called to see pt for chest pain. Pt reports she was walking down the hallway and developed sharp pain radiating up her chest and down to her epigastric region. The pain resolved spontaneously after burping. She reports that she has had this pain in the past and feels that it may be reflux. Physical Examination Vital Signs: Vital Signs Temperature 97.9 F 01/21/18 21:00 Pulse Rate 80 01/21/18 21:00 Respiratory Rate 19 01/21/18 21:00 Blood Pressure 152/92 01/21/18 21:00 O2 Sat by Pulse Oximetry (%) 98 01/21/18 17:00 Constitutional: Yes: No Distress, Calm Cardiovascular: Yes: Regular Rate and Rhythm, S1, S2. No: Gallop, Murmur, Rub Respiratory: Yes: WNL Gastrointestinal: Yes: Normal Bowel Sounds, Soft. No: Tenderness Labs: CBC, BMP 01/21/18 06:00 01/21/18 06:00 Hospitalist Encounter Assessment: chest pain - ECG done, NS rhythm, no ST T wave changes - troponin neg x 1, trend x 1 more - doubtful cardiac - change zantac to protonix
[2018-01-21] MEDS ORDERED: PANTOPRAZOLE 40 MG TABLET (FP) PO ONE (23:30)
[2018-01-22 06:20] LABS: BASO % 0.5 % (0-2.0); EOS % 0.4 % (0-4.5); HEMATOCRIT 30.6 % (32.4-45.2); LYMPH % 10.1 % (8-40); MCH 28.1 pg (25.7-33.7); MCHC 32.7 g/dl (32.0-36.0); MEAN CELL VOLUME 86.1 fl (80-96); MONO % 6.8 % (3.8-10.2); NEUT % 82.2 % (42.8-82.8); PLATELET COUNT 114 K/MM3 (134-434); RBC 3.55 M/mm3 (3.60-5.2); RDW 16.7 % (11.6-15.6)
[2018-01-22 06:49] LABS: ALBUMIN 2.5 g/dl (3.4-5.0); ALK PHOS 69 U/L (45-117); ANION GAP 7 (8-16); BILIRUBIN,TOTAL 0.3 mg/dL (0.2-1.0); BLOOD UREA NITROGEN 10 mg/dL (7-18); CHLORIDE 109 mmol/L (98-107); CO2 26 mmol/L (21-32); CREATININE 0.4 mg/dL (0.55-1.02); GLUCOSE,RANDOM 94 mg/dL (74-106); MAGNESIUM 1.8 mg/dL (1.8-2.4); POTASSIUM 4.3 mmol/L (3.5-5.1); SGOT/AST 27 U/L (15-37); SGPT/ALT 31 U/L (12-78); SODIUM 142 mmol/L (136-145); TOT PROT 5.5 g/dl (6.4-8.2)
[2018-01-22] MEDS ORDERED: PT OWN MED DRAWER 7, Y5N ONE (08:44)
[2018-01-22] MEDS ORDERED: DEXTROSE 5%-WATER 100 ML IVPB ONE (08:45)
--- NOTE | 2018-01-22 09:12 | PN ---
Progres Note Chief Complaint: Left renal colic sepsis - Objective Vital Signs: Vital Signs Temperature 98.2 F 01/22/18 06:00 Pulse Rate 69 01/22/18 06:00 Respiratory Rate 20 01/22/18 06:00 Blood Pressure 137/80 01/22/18 06:00 O2 Sat by Pulse Oximetry (%) 98 01/22/18 01:00 Labs/Additional Data: CBC, BMP 01/22/18 05:30 01/22/18 05:30 INR, PTT INR 1.55 (0.82-1.09) H 01/20/18 15:40 Imaging - Results Cat Scan: Report Reviewed Ultrasound: Report Reviewed Problem List - Problems (1) Kidney stone on left side Code(s): N20.0 - CALCULUS OF KIDNEY (2) Sepsis due to urinary tract infection Code(s): A41.9 - SEPSIS, UNSPECIFIED ORGANISM; N39.0 - URINARY TRACT INFECTION, SITE NOT SPECIFIED Assessment/Plan 52 yo female w left 3 mm obstructing stone w sepsis s/p pcn NT draining well pt responding wbc now 15 (25) cont iv abx nt For internaization when medically stable and sepsis reso.ves will discuss stone tx afterwards
[2018-01-22] MEDS: PANTOPRAZOLE 40 MG TABLET (FP) PO SCH (09:30)
[2018-01-22] MEDS: LACTOBACILLUS ACIDOPHILUS 1 TABLET PO SCH (09:30)
[2018-01-22] MEDS: TAMSULOSIN HCL 0.4 MG CAP.ER.24H (FP) PO SCH (09:30)
[2018-01-22] MEDS: CEFTRIAXONE 2 GM in DEXTROSE 5%-WATER 100 ML IVPB SCH (09:32)
--- NOTE | 2018-01-22 10:09 | PN ---
Physical Exam: SUBJECTIVE: Patient seen and examined at the bedside. Feels well, having intermittent leg pain. OBJECTIVE: Vital Signs Period Temp Pulse Resp BP Sys/Brooks Pulse Ox Last 24 Hr 97.9 F-99.0 F 68-87 18-20 118-152/73-92 98-98 GENERAL: The patient is awake, alert, and fully oriented, in no acute distress. HEAD: Normal with no signs of trauma. EYES: PERRL, extraocular movements intact, sclera anicteric, conjunctiva clear. No ptosis. ENT: Ears normal, nares patent, oropharynx clear without exudates, moist mucous membranes. NECK: Trachea midline, full range of motion, supple. LUNGS: Breath sounds equal, clear to auscultation bilaterally, no wheezes, no crackles, no accessory muscle use. HEART: Regular rate and rhythm, S1, S2 without murmur, rub or gallop. ABDOMEN: Soft, nontender, nondistended, normoactive bowel sounds, no guarding, no rebound, no hepatosplenomegaly, no masses. EXTREMITIES: 2+ pulses, warm, well-perfused, no edema. NEUROLOGICAL: Cranial nerves II through XII grossly intact. Normal speech, gait not observed. PSYCH: Normal mood, normal affect. SKIN: Warm, dry, normal turgor, no rashes or lesions noted Laboratory Results - last 24 hr 01/21/18 01/22/18 01/22/18 21:30 03:30 05:30 WBC 15.0 H RBC 3.55 L Hgb 10.0 L Hct 30.6 L MCV 86.1 MCH 28.1 MCHC 32.7 RDW 16.7 H Plt Count 114 L MPV 10.0 Absolute Neuts (auto) 12.3 Neutrophils % 82.2 Lymphocytes % 10.1 D Monocytes % 6.8 Eosinophils % 0.4 D Basophils % 0.5 Nucleated RBC % 0 Sodium Potassium Chloride Carbon Dioxide Anion Gap BUN Creatinine Creat Clearance w eGFR Random Glucose Calcium Magnesium Total Bilirubin AST ALT Alkaline Phosphatase Troponin I < 0.02 < 0.02 Total Protein Albumin 01/22/18 05:30 WBC RBC Hgb Hct MCV MCH MCHC RDW Plt Count MPV Absolute Neuts (auto) Neutrophils % Lymphocytes % Monocytes % Eosinophils % Basophils % Nucleated RBC % Sodium 142 Potassium 4.3 Chloride 109 H Carbon Dioxide 26 Anion Gap 7 L BUN 10 Creatinine 0.4 L Creat Clearance w eGFR > 60 Random Glucose 94 Calcium 8.0 L Magnesium 1.8 Total Bilirubin 0.3 AST 27 ALT 31 Alkaline Phosphatase 69 Troponin I Total Protein 5.5 L Albumin 2.5 L Active Medications Generic Name Dose Route Start Last Admin Trade Name Freq PRN Reason Stop Dose Admin Acetaminophen 650 mg 01/20/18 01:44 01/21/18 13:38 Tylenol - PO 650 mg Q6H PRN Administration HEADACHE Potassium Chloride/Sodium Chloride 20 meq in 1,000 mls @ 100 mls/hr 01/20/18 13:11 01/21/18 20:55 Ns+20 Meq Kcl - IV 100 mls/hr ASDIR INDRA Administration Ceftriaxone Sodium 2 gm/ 100 mls @ 100 mls/hr 01/21/18 10:00 01/22/18 09:32 Dextrose IVPB 100 mls/hr DAILY INDRA Administration Lactobacillus Acidophilus 1 tab 01/20/18 13:45 01/22/18 09:30 Bacid - PO 1 tab DAILY INDRA Administration Ondansetron HCl 4 mg 01/19/18 20:12 01/20/18 21:08 Zofran Injection IVPUSH 4 mg Q6H PRN Administration NAUSEA Pantoprazole Sodium 40 mg 01/22/18 10:00 01/22/18 09:30 Protonix - PO 40 mg DAILY INDRA Administration Tamsulosin HCl 0.4 mg 01/20/18 08:30 01/22/18 09:30 Flomax - PO 0.4 mg DAILY@0830 INDRA Administration ASSESSMENT/PLAN: Patient is a 52 year old female with a past medical history of uterine fibroids. Patient was admitted initially to [facility] then transferred to [place] for sepsis secondary to UTI with left sided flank pain , possible infected stone, mild hydronephrosis and WBC 25.9. She is s/p left nephrostomy tube placement on 01/19/2018. Imaging CT renal stone IMPRESSION: A 3 mm distal left urethral calculus is noted adjacent to the ureterovesical junction with resultant mild hydronephrosis. Multiple small bilateral nonobstructing renal calculi are seen. 7 cm partially calcified uterine leiomyoma. Abd/KUB: pending : Left percutanous nephrostomy tube placed 01/20 Monitor output, vitals, fever curve. On ceftriaxone 2 grams. on Flomax daily. Followed by urology. Monitor Bun/Creat and nephrostomy output. ID Sepsis, improving. Secondary to UTI. UC pending, on Ceftriaxone 2g. Trend labs , vitals. FEN On IVF hydration NS with 20meq monitor electrolytes regular diet prophy SCDs, ambulation Dispostion: full code Visit type - Emergency Visit Emergency Visit: Yes ED Registration Date: 01/20/18 Care time: The patient presented to the Emergency Department on the above date and was hospitalized for further evaluation of their emergent condition. - New Patient This patient is new to me today: No - Critical Care Critical Care patient: No - Discharge Referral Referred to [facility] Med P.C.: No
[2018-01-22] MEDS ORDERED: traMADol HCL 50 MG TABLET PO PRN (11:11)
--- NOTE | 2018-01-22 11:28 | EKG ---
Test Reason : Blood Pressure : / mmHG Vent. Rate : 074 BPM Atrial Rate : 075 BPM P-R Int : 146 ms QRS Dur : 082 ms QT Int : 370 ms P-R-T Axes : 065 047 033 degrees QTc Int : 410 ms NORMAL SINUS RHYTHM NORMAL ECG WHEN COMPARED WITH ECG OF 20-JAN-2018 11:23, QT HAS SHORTENED Confirmed by LOREN ROMAN MD ([id number]) on 01/22/2018 11:28:12 AM Referred By: Confirmed By:LOREN ROMAN MD
--- NOTE | 2018-01-23 08:24 | PN ---
Progress Note (short form) - Note Progress Note: patient feels much better PCN draining. WBC improving. abd soft KUB still with stones present. No further intervention for at this admission OK to discharge as per Medicine/ID with outpatient course of abx follow up in office in 1-2 weeks. Problem List - Problems (1) Sepsis due to urinary tract infection Code(s): A41.9 - SEPSIS, UNSPECIFIED ORGANISM; N39.0 - URINARY TRACT INFECTION, SITE NOT SPECIFIED (2) Hydronephrosis Code(s): N13.30 - UNSPECIFIED HYDRONEPHROSIS
[2018-01-23] MEDS ORDERED: DEXTROSE 5%-WATER 100 ML IVPB ONE (08:50)
[2018-01-23] MEDS: PANTOPRAZOLE 40 MG TABLET (FP) PO SCH (09:09)
[2018-01-23] MEDS: LACTOBACILLUS ACIDOPHILUS 1 TABLET PO SCH (09:09)
[2018-01-23] MEDS: CEFTRIAXONE 2 GM in DEXTROSE 5%-WATER 100 ML IVPB SCH (09:09)
[2018-01-23] MEDS: TAMSULOSIN HCL 0.4 MG CAP.ER.24H (FP) PO SCH (09:09)
[2018-01-23 12:39] LABS: BASO % 0.5 % (0-2.0); EOS % 0.8 % (0-4.5); HEMATOCRIT 33.3 % (32.4-45.2); HEMOGLOBIN 10.9 GM/dL (10.7-15.3); LYMPH % 18.8 % (8-40); MCH 27.9 pg (25.7-33.7); MCHC 32.8 g/dl (32.0-36.0); MEAN PLT VOLUME 9.6 fl (7.5-11.1); MONO % 10.9 % (3.8-10.2); PLATELET COUNT 160 K/MM3 (134-434); RBC 3.91 M/mm3 (3.60-5.2); RDW 16.1 % (11.6-15.6); WHITE BLOOD COUNT 8.9 K/mm3 (4.0-10.0)
[2018-01-23 13:13] LABS: CHLORIDE 103 mmol/L (98-107); POTASSIUM 3.9 mmol/L (3.5-5.1); SODIUM 139 mmol/L (136-145)
[2018-01-23 13:22] LABS: ALBUMIN 2.9 g/dl (3.4-5.0); ALK PHOS 77 U/L (45-117); ANION GAP 6 (8-16); BILIRUBIN,TOTAL 0.2 mg/dL (0.2-1.0); BLOOD UREA NITROGEN 7 mg/dL (7-18); CALCIUM 8.5 mg/dL (8.5-10.1); CO2 30 mmol/L (21-32); CREATININE 0.5 mg/dL (0.55-1.02); GLUCOSE,RANDOM 96 mg/dL (74-106); MAGNESIUM 1.7 mg/dL (1.8-2.4); SGOT/AST 21 U/L (15-37); SGPT/ALT 32 U/L (12-78); TOT PROT 6.4 g/dl (6.4-8.2)
[2018-01-23] MEDS ORDERED: MAGNESIUM OXIDE 400 MG TABLET (FP) PO ONE (13:47)
--- NOTE | 2018-01-23 14:10 | DS ---
Physical Exam: SUBJECTIVE: Patient seen and examined Feels better, anxious about leaving with leg bag. Teaching reinforced. Agrees to follow up with urology within 1 week after discharge. OBJECTIVE: WBC within normal limits, last dose of Ceftriaxone tomorrow then discharge home Patient and aware and in agreement appointment made for > post hospital follow up with Dr. Tyler Cast, PCP on January 29 @ 2:30pm. Vital Signs Period Temp Pulse Resp BP Sys/Brooks Pulse Ox Last 24 Hr 97.8 F-98.6 F 75-80 18-20 133-156/77-93 99-99 PHYSICAL EXAM GENERAL: The patient is awake, alert, and fully oriented, in no acute distress. HEAD: Normal with no signs of trauma. EYES: PERRL, extraocular movements intact, sclera anicteric, conjunctiva clear. No ptosis. ENT: Ears normal, nares patent, oropharynx clear without exudates, moist mucous membranes. NECK: Trachea midline, full range of motion, supple. LUNGS: Breath sounds equal, clear to auscultation bilaterally, no wheezes, no crackles, no accessory muscle use. HEART: Regular rate and rhythm, S1, S2 without murmur, rub or gallop. ABDOMEN: Soft, nontender, nondistended, normoactive bowel sounds, no guarding, no, left nephrostomy tube dressing intact, skin site around tube c/d/i rebound, no hepatosplenomegaly, no masses. EXTREMITIES: 2+ pulses, warm, well-perfused, no edema. NEUROLOGICAL: Cranial nerves II through XII grossly intact. Normal speech, gait not observed. PSYCH: Normal mood, normal affect. Laboratory Results - last 24 hr LABS Laboratory Results - last 24 hr 01/23/18 01/23/18 12:15 12:15 WBC 8.9 RBC 3.91 Hgb 10.9 Hct 33.3 MCV 85.0 MCH 27.9 MCHC 32.8 RDW 16.1 H Plt Count 160 D MPV 9.6 Absolute Neuts (auto) 6.1 Neutrophils % 69.0 Lymphocytes % 18.8 D Monocytes % 10.9 H Eosinophils % 0.8 D Basophils % 0.5 Nucleated RBC % 0 Sodium 139 Potassium 3.9 Chloride 103 Carbon Dioxide 30 Anion Gap 6 L BUN 7 Creatinine 0.5 L Creat Clearance w eGFR > 60 Random Glucose 96 Calcium 8.5 Magnesium 1.7 L Total Bilirubin 0.2 AST 21 ALT 32 Alkaline Phosphatase 77 Total Protein 6.4 Albumin 2.9 L HOSPITAL COURSE: Date of Admission:01/20/18 Date of Discharge: 01/24/18 Discharge Summary Reason For Visit: URINARY TRACT INFECTION, SITE NOT SPECIFIED,CALCUL Current Active Problems Hydronephrosis (Acute) Kidney stone on left side (Acute) Sepsis due to urinary tract infection (Acute) Condition: Improved - Instructions Referrals: Birdie Mcduffie MD [Primary Care Provider] - (appointment made for > post hospital follow up. January 29 @ 2:30pm. ) Disposition: HOME - Home Medications Comprehensive Discharge Medication List: Ambulatory Orders No Home Medications 0 dose .ROUTE UTDICT 04/01/13 - Discharge Referral Referred to [facility] Med P.C.: No
--- NOTE | 2018-01-23 14:10 | PN ---
Physical Exam: SUBJECTIVE: Patient seen and examined at the bedside. Feels better, anxious about leaving with leg bag. Teaching reinforced. Agrees to follow up with urology within 1 week after discharge. OBJECTIVE: WBC within normal limits, last dose of Ceftriaxone tomorrow then discharge home Patient and aware and in agreement appointment made for > post hospital follow up with Dr. Tyler Cast, PCP on January 29 @ 2:30pm. Vital Signs Period Temp Pulse Resp BP Sys/Brooks Pulse Ox Last 24 Hr 97.8 F-98.6 F 75-80 18-20 133-156/77-93 99-99 GENERAL: The patient is awake, alert, and fully oriented, in no acute distress. HEAD: Normal with no signs of trauma. EYES: PERRL, extraocular movements intact, sclera anicteric, conjunctiva clear. No ptosis. ENT: Ears normal, nares patent, oropharynx clear without exudates, moist mucous membranes. NECK: Trachea midline, full range of motion, supple. LUNGS: Breath sounds equal, clear to auscultation bilaterally, no wheezes, no crackles, no accessory muscle use. HEART: Regular rate and rhythm, S1, S2 without murmur, rub or gallop. ABDOMEN: Soft, nontender, nondistended, normoactive bowel sounds, no guarding, no, left nephrostomy tube dressing intact, skin site around tube c/d/i rebound, no hepatosplenomegaly, no masses. EXTREMITIES: 2+ pulses, warm, well-perfused, no edema. NEUROLOGICAL: Cranial nerves II through XII grossly intact. Normal speech, gait not observed. PSYCH: Normal mood, normal affect. Laboratory Results - last 24 hr 01/23/18 01/23/18 12:15 12:15 WBC 8.9 RBC 3.91 Hgb 10.9 Hct 33.3 MCV 85.0 MCH 27.9 MCHC 32.8 RDW 16.1 H Plt Count 160 D MPV 9.6 Absolute Neuts (auto) 6.1 Neutrophils % 69.0 Lymphocytes % 18.8 D Monocytes % 10.9 H Eosinophils % 0.8 D Basophils % 0.5 Nucleated RBC % 0 Sodium 139 Potassium 3.9 Chloride 103 Carbon Dioxide 30 Anion Gap 6 L BUN 7 Creatinine 0.5 L Creat Clearance w eGFR > 60 Random Glucose 96 Calcium 8.5 Magnesium 1.7 L Total Bilirubin 0.2 AST 21 ALT 32 Alkaline Phosphatase 77 Total Protein 6.4 Albumin 2.9 L Active Medications Generic Name Dose Route Start Last Admin Trade Name Freq PRN Reason Stop Dose Admin Acetaminophen 650 mg 01/20/18 01:44 01/21/18 13:38 Tylenol - PO 650 mg Q6H PRN Administration HEADACHE Potassium Chloride/Sodium Chloride 20 meq in 1,000 mls @ 100 mls/hr 01/20/18 13:11 01/21/18 20:55 Ns+20 Meq Kcl - IV 100 mls/hr ASDIR INDRA Administration Ceftriaxone Sodium 2 gm/ 100 mls @ 100 mls/hr 01/21/18 10:00 01/23/18 09:09 Dextrose IVPB 100 mls/hr DAILY INDRA Administration Lactobacillus Acidophilus 1 tab 01/20/18 13:45 01/23/18 09:09 Bacid - PO 1 tab DAILY INDRA Administration Ondansetron HCl 4 mg 01/19/18 20:12 01/20/18 21:08 Zofran Injection IVPUSH 4 mg Q6H PRN Administration NAUSEA Pantoprazole Sodium 40 mg 01/22/18 10:00 01/23/18 09:09 Protonix - PO 40 mg DAILY INDRA Administration Tamsulosin HCl 0.4 mg 01/20/18 08:30 01/23/18 09:09 Flomax - PO 0.4 mg DAILY@0830 INDRA Administration Tramadol HCl 50 mg 01/22/18 11:11 Ultram - PO Q8H PRN PAIN LEVEL 7 - 10 ASSESSMENT/PLAN: Patient is a 52 year old female with a past medical history of uterine fibroids. Patient was admitted initially to [facility] then transferred to [place] for sepsis secondary to UTI with left sided flank pain , possible infected stone, mild hydronephrosis and WBC 25.9. She is s/p left nephrostomy tube placement on 01/19/2018. Imaging CT renal stone: A 3 mm distal left urethral calculus is noted adjacent to the ureterovesical junction with resultant mild hydronephrosis. Multiple small bilateral nonobstructing renal calculi are seen. 7 cm partially calcified uterine leiomyoma. Abd/KUB: 01/22/2018: nephrolithiasis within the upper side of the left kidney noted. several calcified pelvic phlebolithis is see. d : Left percutanous nephrostomy tube placed 01/20: patient to be discharged with nephrostomy tube and follow up with Urology outpatient within 1 week. ID Sepsis, resolved. Continue PO antibiotics on discharge (ceftin 500mg BID). Last dose of Ceftriaxone 2gm tomorrow. Repeat labs with PCP and urology outpatient. FEN tolerating PO labs regular diet prophy SCDs, ambulation Dispostion: full code
[2018-01-24 07:42] LABS: BASO % 0.6 % (0-2.0); EOS % 1.2 % (0-4.5); HEMATOCRIT 35.7 % (32.4-45.2); HEMOGLOBIN 11.8 GM/dL (10.7-15.3); LYMPH % 22.9 % (8-40); MCH 27.7 pg (25.7-33.7); MEAN CELL VOLUME 84.1 fl (80-96); MEAN PLT VOLUME 9.2 fl (7.5-11.1); MONO % 16.5 % (3.8-10.2); NEUT % 58.8 % (42.8-82.8); PLATELET COUNT 178 K/MM3 (134-434); RBC 4.25 M/mm3 (3.60-5.2); RDW 16.4 % (11.6-15.6); WHITE BLOOD COUNT 7.8 K/mm3 (4.0-10.0)
[2018-01-24] MEDS ORDERED: DEXTROSE 5%-WATER 100 ML IVPB ONE ×2 (08:22→08:32)
[2018-01-24] MEDS: TAMSULOSIN HCL 0.4 MG CAP.ER.24H (FP) PO SCH (08:43)
[2018-01-24] MEDS: PANTOPRAZOLE 40 MG TABLET (FP) PO SCH (09:37)
[2018-01-24] MEDS: LACTOBACILLUS ACIDOPHILUS 1 TABLET PO SCH (09:37)
[2018-01-24] MEDS: CEFTRIAXONE 2 GM in DEXTROSE 5%-WATER 100 ML IVPB SCH (09:37)
--- NOTE | 2018-01-24 10:19 | PN ---
Progress Note (short form) - Note Progress Note: having some urinary urgency which has slightly improved from yesterday. noted some crystals when straining the urine yesterday. denies Cp, SOB, fever, chills , N/V/C/D, dyuria or hematuria Current Medications Generic Name Dose Route Start Last Admin Trade Name Freq PRN Reason Stop Dose Admin Acetaminophen 650 mg 01/20/18 01:44 01/21/18 13:38 Tylenol - PO 650 mg Q6H PRN Administration HEADACHE Ceftriaxone Sodium 2 gm/ 100 mls @ 100 mls/hr 01/21/18 10:00 01/24/18 09:37 Dextrose IVPB 100 mls/hr DAILY INDRA Administration Lactobacillus Acidophilus 1 tab 01/20/18 13:45 01/24/18 09:37 Bacid - PO 1 tab DAILY INDRA Administration Ondansetron HCl 4 mg 01/19/18 20:12 01/20/18 21:08 Zofran Injection IVPUSH 4 mg Q6H PRN Administration NAUSEA Pantoprazole Sodium 40 mg 01/22/18 10:00 01/24/18 09:37 Protonix - PO 40 mg DAILY INDRA Administration Tamsulosin HCl 0.4 mg 01/20/18 08:30 01/24/18 08:43 Flomax - PO 0.4 mg DAILY@0830 INDRA Administration Last Vital Signs Temp Pulse Resp BP Pulse Ox 98.0 F 83 18 164/91 100 01/24/18 06:00 01/24/18 06:00 01/24/18 06:00 01/24/18 06:00 01/23/18 21:00 General NAD CV S1 S2 RRR no murmur/rub/gallop Lungs CTA B/L no wheezing/rales/rhonchi ABdomn soft NT/ND +L nephrostomy tube with clear drainage. no erythema or drainage noted around the tube site CBCD WBC 7.8 K/mm3 (4.0-10.0) 01/24/18 06:35 RBC 4.25 M/mm3 (3.60-5.2) 01/24/18 06:35 Hgb 11.8 GM/dL (10.7-15.3) 01/24/18 06:35 Hct 35.7 % (32.4-45.2) 01/24/18 06:35 MCV 84.1 fl (80-96) 01/24/18 06:35 MCHC 33.0 g/dl (32.0-36.0) 01/24/18 06:35 RDW 16.4 % (11.6-15.6) H 01/24/18 06:35 Plt Count 178 K/MM3 (134-434) 01/24/18 06:35 MPV 9.2 fl (7.5-11.1) 01/24/18 06:35 A/p 52yo F wtih PMH uterine fibroids admitted for sepsis due to UTI and found to have nephrolithasis on L side 1. Sepsis due to Proteus UTI- s/p nephrostomy tube 01/20 now drainning clear fluid. some urinary urgency noted since passage of "crystals" may be small stones passed. completed ceftriaxone. can switch to ceftin for 10days. f/u with urology in 1 week for nephrostomy tube removal. d/c home on ceftin. all questions answered. verbalized understanding and agreement with plan Visit type - Emergency Visit Emergency Visit: Yes ED Registration Date: 01/20/18 Care time: The patient presented to the Emergency Department on the above date and was hospitalized for further evaluation of their emergent condition. - New Patient This patient is new to me today: Yes Date on this admission: 01/24/18 - Critical Care Critical Care patient: No - Discharge Referral Referred to [facility] Yes Physician Referral: Birdie Mcduffie MD ([facility])
[2018-01-24 10:43] VITALS: BP 148/92; PULSE 96; TEMP 98.2
== END 2018-01-24 14:30 | disposition home or self-care (01) | DRG 872 ==
LOC: FER 11:33 → SUPCPDRO 11:33 → FM/S 15:06 → OBSVTOIN 01-20 14:01 → J4S 01-20 22:47
PROVIDERS: ADMIT Internal Medicine; ATTEND Internal Medicine
PROC: 0T777DZ Dilation of Left Ureter with Intraluminal Device, Via Natural or Artificial Opening (ICD-10-PCS; principal; 2018-01-20)
DX: A41.9 Sepsis, unspecified organism (principal); N39.0 Urinary tract infection, site not specified; N13.2 Hydronephrosis with renal and ureteral calculous obstruction; B96.4 Proteus (mirabilis) (morganii) as the cause of diseases classified elsewhere; D25.9 Leiomyoma of uterus, unspecified
CPT/HCPCS: 36415; 50432; 74018-TC-FY; 74176; 76775-TC; 76856-TC; 80048; 80053; 81003; 81015; 83735; 84100; 84484; 84703; 85025; 85610; 87040; 87086; 87186; 93005; 93010; 99283-25; C1729; C1769; G0378; J0131; J7030